=== PATIENT | female | born 1955 | race Caucasian/White ===

== ENCOUNTER 2016-06-19 20:50 | Emergency (ER) | payer MEDICAID ==
[2016-06-19 22:59] VITALS: BP 158/74
== END 2016-06-19 22:59 | disposition home or self-care (01) ==
LOC: ED 20:50
DX: S09.92XA Unspecified injury of nose, initial encounter (principal); I10 Essential (primary) hypertension; E11.9 Type 2 diabetes mellitus without complications; W22.8XXA Striking against or struck by other objects, initial encounter; Y93.89 Activity, other specified; Y99.8 Other external cause status; Y92.89 Other specified places as the place of occurrence of the external cause

== ENCOUNTER 2016-10-30 09:59 | Inpatient (IN) | payer MEDICAID ==
[~2016-10-30] VITALS: Ht 160 cm; Wt 98.5 kg
[2016-10-30 11:55] LABS: BASOPHIL % 0.4 % (0-2); PLATELET COUNT 177 x10^3mcL (130-400)
[2016-10-30 11:58] LABS: RED CELL DISTRIBUTION WIDTH 14.9 % (11.5-14.5)
[2016-10-30 12:43] LABS: CALCIUM 9.1 mg/dL (8.5-10.1); CARBON DIOXIDE 25.2 mmol/L (21-32); CHLORIDE SERUM 105 mmol/L (98-107); CREATININE SERUM 0.7 mg/dL (0.6-1.0); GFR1 > 60 mL/min; GLUCOSE SERUM 105 mg/dL (74-106); POTASSIUM SERUM 3.9 mmol/L (3.5-5.1); SODIUM SERUM 141 mmol/L (136-145)
[2016-10-30] MEDS ORDERED: GABAPENTIN100 M2 PO (14:45)
[2016-10-30] MEDS ORDERED: CITALOPRAM HYDR40 M1 PO (14:45)
[2016-10-30] MEDS ORDERED: ATORVASTATIN CA40 M1 PO (14:46)
[2016-10-30] MEDS ORDERED: GLUCOPHAGE XR500 MG PO (14:46)
[2016-10-30] MEDS ORDERED: GLIMEPIRIDE2 M1 PO (14:46)
[2016-10-30] MEDS ORDERED: LOTENSIN40 MG PO (14:46)
[2016-10-30] MEDS ORDERED: CLONAZEPAM1 MG PO (14:47)
[2016-10-30] MEDS ORDERED: ZANTAC 150150 MG PO (14:47)
[2016-10-30 15:25] LABS: PHOSPHOROUS 3.8 mg/dL (2.5-4.9)
[2016-10-30 15:30] LABS: T3 TOTAL 1.22 ng/mL
[2016-10-30 15:31] LABS: CHOLESTEROL/HDL RATIO 2.4
[2016-10-30 15:36] LABS: FREE T4 0.99 ng/dL (0.76-1.46); FREE THYROXINE INDEX 2.6 ug/dL (1.4-4.5); T4(THYROXINE) 7.9 ug/dL (4.7-13.3)
[2016-10-30 15:48] VITALS: BP 141/76
[2016-10-30 15:55] VITALS: Ht 160 cm; Wt 98.5 kg
[2016-10-30 21:35] VITALS: BP 115/68
[2016-10-31 06:15] VITALS: BP 122/71
[2016-10-31 09:21] VITALS: BP 120/66
[2016-10-31 13:48] VITALS: BP 110/59
[2016-10-31 17:34] VITALS: BP 125/70
[2016-10-31 21:18] VITALS: BP 131/77
[2016-11-01 05:41] VITALS: BP 135/78
[2016-11-01 08:32] VITALS: BP 126/68
[2016-11-01] MEDS ORDERED: BAY PO (10:44)
== END 2016-11-01 14:30 | disposition home or self-care (01) | DRG 243 ==
LOC: ED 09:59 → DU 12:08
PROVIDERS: Emergency Medicine; ADMIT Family Medicine
PROC: 0HQLXZZ Repair Left Lower Leg Skin, External Approach (ICD-10-PCS; principal; 2016-10-30)
DX: K21.9 Gastro-esophageal reflux disease without esophagitis (principal); E11.65 Type 2 diabetes mellitus with hyperglycemia; I10 Essential (primary) hypertension; S81.012A Laceration without foreign body, left knee, initial encounter; E78.5 Hyperlipidemia, unspecified; F41.9 Anxiety disorder, unspecified; F32.9 Major depressive disorder, single episode, unspecified; E66.9 Obesity, unspecified; Z68.38 Body mass index [BMI] 38.0-38.9, adult; W01.0XXA Fall on same level from slipping, tripping and stumbling without subsequent striking against object, initial encounter; Y92.9 Unspecified place or not applicable
CPT/HCPCS: 82962; 83880; 84439; J2001; J2270; J7030; Q0092

== ENCOUNTER 2016-11-15 00:32 | Emergency (ER) | payer MEDICAID ==
[~2016-11-15] VITALS: Ht 167.6 cm; Wt 98.4 kg
[~2016-11-15 00:32] MED LIST: ATORVASTATIN CA40 M1 PO; BAY PO; CITALOPRAM HYDR40 M1 PO; CLONAZEPAM1 MG PO; GABAPENTIN100 M2 PO; GLIMEPIRIDE2 M1 PO; GLUCOPHAGE XR500 MG PO; LOTENSIN40 MG PO; ZANTAC 150150 MG PO
[2016-11-15 02:07] VITALS: BP 136/78
== END 2016-11-15 02:07 | disposition home or self-care (01) ==
LOC: ED 00:32
DX: L50.0 Allergic urticaria (principal); E11.9 Type 2 diabetes mellitus without complications; I10 Essential (primary) hypertension; E78.00 Pure hypercholesterolemia, unspecified; F32.9 Major depressive disorder, single episode, unspecified
CPT/HCPCS: J0171; J1200; J2930

== ENCOUNTER 2017-02-17 16:31 | Emergency (ER) | payer MEDICAID ==
[~2017-02-17] VITALS: Ht 162.6 cm; Wt 99.3 kg
[2017-02-17 16:48] VITALS: Ht 162.6 cm; Wt 99.3 kg
[2017-02-17 21:50] VITALS: BP 138/79
== END 2017-02-17 21:50 | disposition home or self-care (01) ==
LOC: ED 16:31
DX: M54.9 Dorsalgia, unspecified (principal); J98.01 Acute bronchospasm; E78.00 Pure hypercholesterolemia, unspecified; I10 Essential (primary) hypertension; F32.9 Major depressive disorder, single episode, unspecified; Z88.8 Allergy status to other drugs, medicaments and biological substances; Z86.59 Personal history of other mental and behavioral disorders; Z90.49 Acquired absence of other specified parts of digestive tract
CPT/HCPCS: J1100; J1885

== ENCOUNTER 2017-02-21 14:52 | Emergency (ER) | payer MEDICAID ==
[2017-02-22] VITALS: BP 126/63
== END 2017-02-22 | disposition home or self-care (01) ==
LOC: ED 14:52
DX: J09.X2 Influenza due to identified novel influenza A virus with other respiratory manifestations (principal); I10 Essential (primary) hypertension; E78.00 Pure hypercholesterolemia, unspecified
CPT/HCPCS: 87804; J1200; J1885; Q0162

== ENCOUNTER 2017-04-23 08:46 | Emergency (ER) | payer MEDICAID ==
[~2017-04-23] VITALS: Ht 165.1 cm; Wt 98.9 kg
[2017-04-23 09:05] VITALS: Ht 165.1 cm; Wt 98.9 kg
[2017-04-23 10:15] LABS: CALCIUM 8.6 mg/dL (8.5-10.1); CARBON DIOXIDE 23.2 mmol/L (21-32); CHLORIDE SERUM 108 mmol/L (98-107); CREATININE SERUM 0.7 mg/dL (0.6-1.0); GFR1 > 60 mL/min; GLUCOSE SERUM 116 mg/dL (74-106); POTASSIUM SERUM 4.2 mmol/L (3.5-5.1); SODIUM SERUM 143 mmol/L (136-145)
[2017-04-23 10:17] LABS: BASOPHIL % 0.4 % (0-2); PLATELET COUNT 156 x10^3mcL (130-400)
[2017-04-23 10:20] LABS: ALBUMIN 3.7 g/dL (3.4-5.0); ALKALINE PHOSPHATASE 105 U/L (46-116); ALT/SGPT 28 U/L (14-59); AST/SGOT 27 U/L (15-37); TOTAL PROTEIN, SERUM 7.4 g/dL (6.4-8.2)
[2017-04-23 10:23] LABS: RED CELL DISTRIBUTION WIDTH 15.7 % (11.5-14.5)
[2017-04-23 10:58] LABS: microscopic required? YES; urine erythrocyte NEGATIVE (NEGATIVE)
[2017-04-23 11:15] VITALS: BP 113/64
== END 2017-04-23 11:15 | disposition home or self-care (01) ==
LOC: ED 08:46
PROVIDERS: Emergency Medicine
DX: N39.0 Urinary tract infection, site not specified (principal); R21 Rash and other nonspecific skin eruption; I10 Essential (primary) hypertension; E11.9 Type 2 diabetes mellitus without complications; E78.00 Pure hypercholesterolemia, unspecified; Z88.8 Allergy status to other drugs, medicaments and biological substances
CPT/HCPCS: 83880; J0696; J1200; Q0092

== ENCOUNTER 2017-04-23 23:51 | Emergency (ER) | payer MEDICAID ==
[2017-04-24 04:01] VITALS: BP 131/74
== END 2017-04-24 04:01 | disposition home or self-care (01) ==
LOC: ED 23:51
DX: T78.40XA Allergy, unspecified, initial encounter (principal); I10 Essential (primary) hypertension; E11.9 Type 2 diabetes mellitus without complications; E78.00 Pure hypercholesterolemia, unspecified; Z88.8 Allergy status to other drugs, medicaments and biological substances; X58.XXXA Exposure to other specified factors, initial encounter
CPT/HCPCS: 82962; J2930; Q0163

== ENCOUNTER 2017-04-24 22:39 | Emergency (ER) | payer MEDICAID ==
[~2017-04-24] VITALS: Ht 165.1 cm; Wt 99.3 kg
[2017-04-24 22:45] VITALS: Ht 165.1 cm; Wt 99.3 kg
[2017-04-25 00:23] VITALS: BP 154/77
== END 2017-04-25 00:23 | disposition home or self-care (01) ==
LOC: ED 22:39
DX: L50.9 Urticaria, unspecified (principal); I10 Essential (primary) hypertension; E11.9 Type 2 diabetes mellitus without complications; Z88.8 Allergy status to other drugs, medicaments and biological substances
CPT/HCPCS: J1100

== ENCOUNTER 2017-05-18 12:37 | Emergency (ER) | payer MEDICAID ==
[~2017-05-18] VITALS: Ht 162.6 cm; Wt 95.2 kg
[2017-05-18 12:40] VITALS: BP 108/61; Ht 162.6 cm; Wt 95.2 kg
== END 2017-05-18 14:12 | disposition home or self-care (01) ==
LOC: ED 12:37
DX: S60.011A Contusion of right thumb without damage to nail, initial encounter (principal); S80.02XA Contusion of left knee, initial encounter; I10 Essential (primary) hypertension; E11.9 Type 2 diabetes mellitus without complications; W18.30XA Fall on same level, unspecified, initial encounter; Y93.89 Activity, other specified; Y99.8 Other external cause status; Y92.89 Other specified places as the place of occurrence of the external cause

== ENCOUNTER 2017-08-20 05:50 | Inpatient (IN) | payer MEDICAID ==
[~2017-08-20] VITALS: Ht 160 cm; Wt 100.8 kg
[2017-08-20 05:51] VITALS: Ht 160 cm; Wt 100.8 kg
[2017-08-20 06:45] LABS: BASOPHIL % 0.6 % (0-2); PLATELET COUNT 167 x10^3mcL (130-400)
[2017-08-20 06:46] LABS: RED CELL DISTRIBUTION WIDTH 15.5 % (11.5-14.5)
[2017-08-20 07:38] LABS: ALBUMIN 3.8 g/dL (3.4-5.0); ALKALINE PHOSPHATASE 113 U/L (46-116); ALT/SGPT 22 U/L (14-59); AMYLASE 55 U/L (25-115); AST/SGOT 21 U/L (15-37); BILIRUBIN TOTAL 0.26 mg/dL (0.20-1.00); CALCIUM 9.6 mg/dL (8.5-10.1); CARBON DIOXIDE 26.4 mmol/L (21-32); CHLORIDE SERUM 106 mmol/L (98-107); CHOLESTEROL 141 mg/dL (<200); CREATININE SERUM 0.8 mg/dL (0.6-1.0); GFR1 > 60 mL/min; GLUCOSE SERUM 115 mg/dL (74-106); HDL CHOLESTEROL 47 mg/dL (40-60); LIPASE 410 IU/L (73-393); SODIUM SERUM 142 mmol/L (136-145); T4(THYROXINE) 5.5 ug/dL (4.7-13.3); TOTAL PROTEIN, SERUM 7.2 g/dL (6.4-8.2)
[2017-08-20 08:01] LABS: microscopic required? YES; urine erythrocyte NEGATIVE (NEGATIVE)
[2017-08-20 08:09] LABS: AMPHETAMINE QUAL UR NONE DETECTED (See below)
[2017-08-20 08:56] VITALS: BP 123/76
[2017-08-20 09:44] LABS: MAGNESIUM 1.8 mg/dL (1.8-2.4); PHOSPHOROUS 4.4 mg/dL (2.5-4.9)
[2017-08-20 09:55] LABS: FREE T4 0.77 ng/dL (0.76-1.46); FREE THYROXINE INDEX 1.7 ug/dL (1.4-4.5); T4(THYROXINE) 5.7 ug/dL (4.7-13.3)
[2017-08-20 10:37] LABS: T3 TOTAL 1.21 ng/mL
[2017-08-20 10:45] VITALS: BP 130/77
[2017-08-20 11:50] VITALS: BP 121/70
[2017-08-20 17:43] VITALS: BP 160/70
[2017-08-20 18:18] VITALS: BP 120/55
[2017-08-20 20:18] VITALS: BP 122/61
[2017-08-21 05:41] LABS: PLATELET COUNT 167 x10^3mcL (130-400)
[2017-08-21 05:43] VITALS: BP 109/40
[2017-08-21 06:01] LABS: CALCIUM 8.1 mg/dL (8.5-10.1); CARBON DIOXIDE 21.9 mmol/L (21-32); CHLORIDE SERUM 107 mmol/L (98-107); CREATININE SERUM 0.6 mg/dL (0.6-1.0); GFR1 > 60 mL/min; GLUCOSE SERUM 171 mg/dL (74-106); POTASSIUM SERUM 4.1 mmol/L (3.5-5.1); SODIUM SERUM 140 mmol/L (136-145)
[2017-08-21 06:55] LABS: BASOPHIL % 0 % (0-2); RED CELL DISTRIBUTION WIDTH 15.6 % (11.5-14.5)
[2017-08-21 08:57] VITALS: BP 138/71
[2017-08-21 11:55] VITALS: BP 110/56
[2017-08-21 17:20] VITALS: BP 135/64
[2017-08-21 20:59] VITALS: BP 136/61
[2017-08-22 05:31] VITALS: BP 120/66
[2017-08-22 06:09] LABS: BASOPHIL % 0.3 % (0-2); PLATELET COUNT 156 x10^3mcL (130-400)
[2017-08-22 06:20] LABS: CALCIUM 7.9 mg/dL (8.5-10.1); CARBON DIOXIDE 24.2 mmol/L (21-32); CHLORIDE SERUM 110 mmol/L (98-107); CREATININE SERUM 0.7 mg/dL (0.6-1.0); GFR1 > 60 mL/min; GLUCOSE SERUM 137 mg/dL (74-106); PHOSPHOROUS 3.3 mg/dL (2.5-4.9); POTASSIUM SERUM 4.6 mmol/L (3.5-5.1); SODIUM SERUM 143 mmol/L (136-145)
[2017-08-22 06:49] LABS: RED CELL DISTRIBUTION WIDTH 15.9 % (11.5-14.5)
[2017-08-22 09:21] VITALS: BP 135/68
[2017-08-22 13:27] VITALS: BP 129/47
[2017-08-22 16:20] VITALS: BP 114/66
[2017-08-22 21:00] VITALS: BP 136/65
[2017-08-23 05:41] VITALS: BP 115/64
[2017-08-23 08:38] VITALS: BP 114/73
[2017-08-23 10:36] LABS: BASOPHIL % 0.2 % (0-2); PLATELET COUNT 142 x10^3mcL (130-400)
[2017-08-23 10:38] LABS: CALCIUM 8.2 mg/dL (8.5-10.1); CARBON DIOXIDE 23.8 mmol/L (21-32); CHLORIDE SERUM 108 mmol/L (98-107); CREATININE SERUM 0.9 mg/dL (0.6-1.0); GFR1 > 60 mL/min; GLUCOSE SERUM 113 mg/dL (74-106); POTASSIUM SERUM 3.4 mmol/L (3.5-5.1); SODIUM SERUM 142 mmol/L (136-145)
[2017-08-23 10:48] LABS: RED CELL DISTRIBUTION WIDTH 16.1 % (11.5-14.5)
[2017-08-23 13:06] VITALS: BP 110/69
[2017-08-23] MEDS ORDERED: LAC PO (14:27)
[2017-08-23] MEDS ORDERED: LEVAQUIN500 M1 PO (14:27)
[2017-08-23] MEDS ORDERED: MEDDP PO (15:28)
[2017-08-23] MEDS ORDERED: QVAR REDIHALE10.6 G1 IH (15:28)
[2017-08-23 15:34] VITALS: BP 110/69
[2017-08-23 17:31] VITALS: BP 106/61
== END 2017-08-23 18:30 | disposition home or self-care (01) | DRG 141 ==
LOC: ED 05:50 → DU 08:09
PROVIDERS: Emergency Medicine; Family Medicine; Internal Medicine
DX: J45.901 Unspecified asthma with (acute) exacerbation (principal); N17.0 Acute kidney failure with tubular necrosis; K85.90 Acute pancreatitis without necrosis or infection, unspecified; E66.2 Morbid (severe) obesity with alveolar hypoventilation; K21.9 Gastro-esophageal reflux disease without esophagitis; N39.0 Urinary tract infection, site not specified; E11.65 Type 2 diabetes mellitus with hyperglycemia; E11.51 Type 2 diabetes mellitus with diabetic peripheral angiopathy without gangrene; F32.9 Major depressive disorder, single episode, unspecified; I10 Essential (primary) hypertension; E78.5 Hyperlipidemia, unspecified; D64.9 Anemia, unspecified; M94.0 Chondrocostal junction syndrome [Tietze]; Z79.82 Long term (current) use of aspirin; Z68.39 Body mass index [BMI] 39.0-39.9, adult; Z79.84 Long term (current) use of oral hypoglycemic drugs
CPT/HCPCS: 82962; 83880; 84439; 94150; J1644; J1956; J2920; J2930; J7030; J7613; J7620; J7644; Q0092

== ENCOUNTER 2018-03-01 15:45 | Emergency (ER) | payer MEDICAID ==
[~2018-03-01] VITALS: Ht 165.1 cm; Wt 101.6 kg
[~2018-03-01 15:45] MED LIST changes: +LAC PO; +LEVAQUIN500 M1 PO; +MEDDP PO; +QVAR REDIHALE10.6 G1 IH
[2018-03-01 15:58] VITALS: Ht 165.1 cm; Wt 101.6 kg
[2018-03-01 17:03] LABS: UA SPECIFIC GRAVITY 1.025 (1.005-1.035); microscopic required? YES; urine erythrocyte NEGATIVE (NEGATIVE)
[2018-03-01 17:05] LABS: BASOPHIL % 0.4 % (0-2); PLATELET COUNT 192 x10^3mcL (130-400)
[2018-03-01 17:08] LABS: RED CELL DISTRIBUTION WIDTH 15.5 % (11.5-14.5)
[2018-03-01 17:26] LABS: CALCIUM 8.7 mg/dL (8.5-10.1); CARBON DIOXIDE 19.1 mmol/L (21-32); CHLORIDE SERUM 105 mmol/L (98-107); CREATININE SERUM 0.8 mg/dL (0.6-1.0); GFR1 > 60 mL/min; GLUCOSE SERUM 103 mg/dL (74-106); POTASSIUM SERUM 3.8 mmol/L (3.5-5.1); SODIUM SERUM 138 mmol/L (136-145)
[2018-03-01 17:29] LABS: T3 TOTAL 0.89 ng/mL
[2018-03-01 17:33] LABS: CK-MB 1.1 ng/mL (0-3.6)
[2018-03-01 17:45] LABS: ALBUMIN 3.9 g/dL (3.4-5.0); ALKALINE PHOSPHATASE 125 U/L (46-116); ALT/SGPT 32 U/L (14-59); AST/SGOT 27 U/L (15-37); TOTAL PROTEIN, SERUM 7.8 g/dL (6.4-8.2)
[2018-03-01 17:55] LABS: FREE T4 0.76 ng/dL (0.76-1.46); FREE THYROXINE INDEX 2.3 ug/dL (1.4-4.5); T4(THYROXINE) 7.3 ug/dL (4.7-13.3)
[2018-03-01 18:01] LABS: ERYTHROCYTE SED RATE 28 mm/hr (0-30)
[2018-03-01 18:02] LABS: C REACTIVE PROTEIN 0.5 mg/dL (<=0.9)
[2018-03-01 23:20] VITALS: BP 131/78
== END 2018-03-01 23:25 | disposition home or self-care (01) ==
LOC: ED 15:45
PROVIDERS: Specialist
DX: B34.9 Viral infection, unspecified (principal); J45.909 Unspecified asthma, uncomplicated; I10 Essential (primary) hypertension; E11.9 Type 2 diabetes mellitus without complications; E78.00 Pure hypercholesterolemia, unspecified; F32.9 Major depressive disorder, single episode, unspecified; Z88.8 Allergy status to other drugs, medicaments and biological substances
CPT/HCPCS: 84439; 87804; J0696; J1885; J2405; J2930; J3010; J7620; Q0092

== ENCOUNTER 2018-12-08 14:57 | Emergency (ER) | payer MEDICAID ==
[~2018-12-08] VITALS: Ht 165.1 cm; Wt 104.3 kg
[2018-12-08 15:04] VITALS: Ht 165.1 cm; Wt 104.3 kg
[2018-12-08 16:51] VITALS: BP 114/74
== END 2018-12-08 16:51 | disposition home or self-care (01) ==
LOC: ED 14:57
DX: S63.617A Unspecified sprain of left little finger, initial encounter (principal); I10 Essential (primary) hypertension; R42 Dizziness and giddiness; E11.9 Type 2 diabetes mellitus without complications; E78.00 Pure hypercholesterolemia, unspecified; F32.9 Major depressive disorder, single episode, unspecified; Z90.49 Acquired absence of other specified parts of digestive tract; Z88.8 Allergy status to other drugs, medicaments and biological substances; W22.01XA Walked into wall, initial encounter; Y93.89 Activity, other specified; Y92.89 Other specified places as the place of occurrence of the external cause; Y99.8 Other external cause status; J45.909 Unspecified asthma, uncomplicated
CPT/HCPCS: A4570

== ENCOUNTER 2019-03-01 10:15 | Inpatient (IN) | payer MEDICAID ==
[~2019-03-01] VITALS: Ht 160 cm; Wt 100.2 kg
[2019-03-01 10:27] VITALS: Ht 160 cm; Wt 100.2 kg
--- NOTE | 2019-03-01 10:30 | NUR ---
EKG IN PROGRESS.
--- NOTE | 2019-03-01 11:16 | NUR ---
PT HERE FOR HBP FOR 3 DAYS WITH ASSOCIATED HEADACHE AND DIZZINESS. PT CLAIMS PRESSURE LIKE HEADACHE WITHOUT PRESENCE OF N/V/D OR FEVER. PT DOES CLAIM TO HAVE INTERMITTENT NAUSEA BUT DENIES NAUSEA UPON ARRIVAL. ELISA AND DR HOGAN SAW PT FOR EVAL
--- NOTE | 2019-03-01 11:23 | NUR ---
LAB AT BEDSIDE. BP CURRENTLY 131/63
[2019-03-01 11:55] LABS: BASOPHIL % 0.3 % (0-2); PLATELET COUNT 183 x10^3mcL (130-400)
[2019-03-01 11:56] LABS: RED CELL DISTRIBUTION WIDTH 16.7 % (11.5-14.5)
[2019-03-01 12:29] LABS: ALBUMIN 3.6 g/dL (3.4-5.0); ALKALINE PHOSPHATASE 129 U/L (46-116); ALT/SGPT 32 U/L (14-59); AST/SGOT 24 U/L (15-37); BILIRUBIN TOTAL 0.2 mg/dL (0.20-1.00); CALCIUM 8.7 mg/dL (8.5-10.1); CARBON DIOXIDE 26.9 mmol/L (21-32); CHLORIDE SERUM 103 mmol/L (98-107); CREATININE SERUM 0.6 mg/dL (0.6-1.0); GFR1 > 60 mL/min; GLUCOSE SERUM 116 mg/dL (74-106); POTASSIUM SERUM 4.1 mmol/L (3.5-5.1); SODIUM SERUM 137 mmol/L (136-145); TOTAL PROTEIN, SERUM 7.2 g/dL (6.4-8.2)
--- NOTE | 2019-03-01 12:35 | NUR ---
PT HAS VSS AT THIS TIME WITHOUT PRESENCE OF ABNORMALLY HBP. PT HAS NO S/S DISTRESS NOTED AND AWAITING MD REEVAL
--- NOTE | 2019-03-01 13:55 | NUR ---
PT RESTING IN BED WITH NO SIGNS OF DISTRESS. AT BEDSIDE.
--- NOTE | 2019-03-01 15:06 | NUR ---
PT RESTING IN BED WITH AT BEDSIDE. NO SIGNS OF DISTRESS.
--- NOTE | 2019-03-01 15:33 | NUR ---
REPORT GIVEN TO JHONNY GRIFFIN.
[2019-03-01 15:47] LABS: CHOLESTEROL/HDL RATIO 3.3; PHOSPHOROUS 3.4 mg/dL (2.5-4.9)
[2019-03-01 15:57] VITALS: BP 149/76
[2019-03-01 15:58] LABS: T3 TOTAL 0.97 ng/mL
[2019-03-01 16:00] VITALS: BP 150/75
--- NOTE | 2019-03-01 16:14 | NUR ---
RECEIVED PT FROM ER, PT ADMIT FOR CHEST PAIN, PT IS A/O X4, VERBAL RESPONSIVE. LUNG SOUND CLEAR BILATERAL, NO COUGH, NO SOB. PT IS ON TELE 9. C/O PRESSURE PAIN 4/10, ONLY AT CENTER OF CHEST, NO RADIATE. BOWEL SOUND PRESENT ALL 4 QUADRANTS, NO DISTENTION, NO TENDER. PEDAL PULSE PRESENT BOTH FEET, NO EDEMA, IV AT LEFT AC, NO LEAKING, NO INFILTRATION. ALL ADLS ASSIST, ALL NEED MET, CALL LIGHT IN REACH, WILL CONTINUE TO MONITOR.
[2019-03-01 16:20] LABS: FREE T4 0.79 ng/dL (0.76-1.46); T4(THYROXINE) 6.3 ug/dL (4.7-13.3)
--- NOTE | 2019-03-01 19:23 | NUR ---
REPORT GIVEN TO HAND I BLOCKER NURSE, CARE ENDORSED
--- NOTE | 2019-03-01 19:40 | NUR ---
PT A/A/O X4. DENIES DIZZINESS C/O HEADACHE AND PAIN. GAVE PT NORCO PO. PT TOLERATED IT WELL. BREATH SOUNDS CLEAR. BREATHING EVEN AND UNLABORED ON ROOM AIR. DENIES CHEST PRESSURE. BOWEL SOUNDS ACTIVE. NO C/O N/V AND ABD PAIN. IV INTACT ON THE LAC. MADE PT COMFORTABLE. PLACED CALL LIGHT WITH IN REACH. WILL CONTINUE TO MONITOR.
[2019-03-01 20:50] VITALS: BP 123/50
--- NOTE | 2019-03-01 21:55 | NUR ---
PT C/O FEELING ANXIOUS. GAVE PT KLONOPIN PO. PT TOLERATED IT WELL. WILL CONTINUE TO MONITOR.
--- NOTE | 2019-03-02 01:45 | NUR ---
PT C/O HAVING PROBLEM SLEEPING. DR. VASQUEZ NOTIFIED AND ORDERED AMBIEN PO. PT WAS GIVEN AMBIEN PT BY RN. PT TOLERATED IT WELL. WILL CONTINUE TO MONITOR.
[2019-03-02 05:25] VITALS: BP 113/55
--- NOTE | 2019-03-02 06:04 | NUR ---
PT QUIET AND RESTING. NO C/O CHEST PAIN AND HEADACHE THUS FAR. MADE PT COMFORTABLE. WILL ENDORSE TO THE AM NURSE ACCORDINGLY.
[2019-03-02 06:15] LABS: microscopic required? NO
[2019-03-02 06:45] LABS: BASOPHIL % 0.2 % (0-2); PLATELET COUNT 172 x10^3mcL (130-400)
[2019-03-02 06:53] LABS: RED CELL DISTRIBUTION WIDTH 16.4 % (11.5-14.5)
[2019-03-02 07:02] LABS: urine erythrocyte NEGATIVE (NEGATIVE)
[2019-03-02 07:32] LABS: AMPHETAMINE QUAL UR NONE DETECTED (See below)
[2019-03-02 08:00] LABS: CALCIUM 8.5 mg/dL (8.5-10.1); CARBON DIOXIDE 26.7 mmol/L (21-32); CHLORIDE SERUM 103 mmol/L (98-107); CREATININE SERUM 0.7 mg/dL (0.6-1.0); GFR1 > 60 mL/min; GLUCOSE SERUM 110 mg/dL (74-106); MAGNESIUM 2.1 mg/dL (1.8-2.4); PHOSPHOROUS 4.7 mg/dL (2.5-4.9); POTASSIUM SERUM 4.2 mmol/L (3.5-5.1); SODIUM SERUM 138 mmol/L (136-145)
[2019-03-02 08:32] VITALS: BP 135/72
--- NOTE | 2019-03-02 08:37 | NUR ---
AAO TIMES 4. TELE # 9 SR. LUNGS CTA. NO SOB. O2 SAT ON RA 99%. BS'S ACTIVE TIMES 4. TAYLOR STRONG. IV SITE LFA CDI. COOPERATIVE AND PLEASANT. NO C/O PAIN. NO SOB.
--- NOTE | 2019-03-02 09:01 | NUR ---
C/O HEADACHE UNRELIEVED BY OTHER MEDIATIONS. TORADOL AND IMITREX WERE BOTH GIVEN ORDERED. AT 1100 PATIENT DENIED ANY HEADACHE, PAIN LEVEL A 0/10.
--- NOTE | 2019-03-02 09:03 | NUR ---
ECHOCARDIOGRAM IS PENDNG PS HAVING A SEVERE MIGRAINE.
--- NOTE | 2019-03-02 12:13 | NUR ---
ECHOCARDIOGRAM IS COMPLETED.
[2019-03-02 12:17] VITALS: BP 139/68
--- NOTE | 2019-03-02 13:26 | NUR ---
Discount pharmacy card and list to low cost medical clinics given to patient by Martha Houser.
[2019-03-02 17:05] VITALS: BP 121/67
[2019-03-02] MEDS ORDERED: IMITREX50 MG PO (17:57)
[2019-03-02] MEDS ORDERED: IBU400 M1 PO (17:58)
--- NOTE | 2019-03-02 18:40 | NUR ---
GAVE DISCHARGE INSTRUCTIONS AND PRESCRIPTION WAS SENT TO [facility] ON [address]. I REMOVED THE SALINE LOCK, ANGIO INTACT. SHE VERBALIZED "I UNDERSTAND" TO ALL INSTRUCTIONS. SHE IS AWARE THAT DR DIAZ ASKED HER TO GET A REFERRAL FROM HER [employer]PERATIONS TEAM LEADER FOR A ASSISTANT PROFESSOR OF DIETETICS TO DO A STRESS TEST.
== END 2019-03-02 18:36 | disposition home or self-care (01) | DRG 203 ==
LOC: ED 10:15 → DU 15:02
PROVIDERS: Emergency Medicine; ADMIT Family Medicine
DX: R07.89 Other chest pain (principal); E11.9 Type 2 diabetes mellitus without complications; E78.5 Hyperlipidemia, unspecified; I10 Essential (primary) hypertension; F32.9 Major depressive disorder, single episode, unspecified; G43.901 Migraine, unspecified, not intractable, with status migrainosus
CPT/HCPCS: 82962; 83880; 84439; 87804; G0378; J1885; J2270; J7620; Q0092

== ENCOUNTER 2019-07-31 12:57 | Emergency (ER) | payer MEDICAID ==
[~2019-07-31] VITALS: Ht 162.6 cm; Wt 104.8 kg
[~2019-07-31 12:57] MED LIST changes: +IBU400 M1 PO; +IMITREX50 MG PO
[2019-07-31 13:17] VITALS: Ht 162.6 cm; Wt 104.8 kg
[2019-07-31 14:26] LABS: CALCIUM 8.3 mg/dL (8.5-10.1); CARBON DIOXIDE 24.2 mmol/L (21-32); CHLORIDE SERUM 105 mmol/L (98-107); CREATININE SERUM 0.8 mg/dL (0.6-1.0); GFR1 > 60 mL/min; GLUCOSE SERUM 99 mg/dL (74-106); POTASSIUM SERUM 3.9 mmol/L (3.5-5.1); SODIUM SERUM 141 mmol/L (136-145)
[2019-07-31 14:30] LABS: ALBUMIN 3.5 g/dL (3.4-5.0); ALKALINE PHOSPHATASE 123 U/L (46-116); ALT/SGPT 28 U/L (14-59); AST/SGOT 21 U/L (15-37); BILIRUBIN TOTAL 0.3 mg/dL (0.20-1.00); TOTAL PROTEIN, SERUM 6.9 g/dL (6.4-8.2)
[2019-07-31 15:49] LABS: BASOPHIL % 0.3 % (0-2); PLATELET COUNT 179 x10^3mcL (130-400)
[2019-07-31 15:50] LABS: RED CELL DISTRIBUTION WIDTH 16.8 % (11.5-14.5)
[2019-07-31 17:17] VITALS: BP 135/88
== END 2019-07-31 17:17 | disposition home or self-care (01) ==
LOC: ED 12:57
PROVIDERS: Emergency Medicine
DX: D64.9 Anemia, unspecified (principal); E86.0 Dehydration; R11.2 Nausea with vomiting, unspecified; R07.89 Other chest pain; J45.909 Unspecified asthma, uncomplicated; I10 Essential (primary) hypertension; E11.9 Type 2 diabetes mellitus without complications; E78.00 Pure hypercholesterolemia, unspecified; Z90.49 Acquired absence of other specified parts of digestive tract; Z88.8 Allergy status to other drugs, medicaments and biological substances
CPT/HCPCS: 36415; 82962; Q0092; Q0162

== ENCOUNTER 2019-10-29 11:53 | Emergency (ER) | payer MEDICAID ==
[~2019-10-29] VITALS: Ht 157.5 cm; Wt 107.5 kg
[2019-10-29 12:04] VITALS: Ht 157.5 cm; Wt 107.5 kg
[2019-10-29 13:08] LABS: CALCIUM 8.5 mg/dL (8.5-10.1); CARBON DIOXIDE 24.5 mmol/L (21-32); CHLORIDE SERUM 104 mmol/L (98-107); CREATININE SERUM 0.9 mg/dL (0.6-1.0); GFR1 > 60 mL/min; GLUCOSE SERUM 166 mg/dL (74-106); POTASSIUM SERUM 3.7 mmol/L (3.5-5.1); SODIUM SERUM 140 mmol/L (136-145)
[2019-10-29 13:13] LABS: ALBUMIN 3.5 g/dL (3.4-5.0); ALKALINE PHOSPHATASE 127 U/L (46-116); ALT/SGPT 25 U/L (14-59); AST/SGOT 21 U/L (15-37); BILIRUBIN TOTAL 0.21 mg/dL (0.20-1.00); TOTAL PROTEIN, SERUM 7.3 g/dL (6.4-8.2)
[2019-10-29 13:39] LABS: BASOPHIL % 0.5 % (0-2); PLATELET COUNT 179 x10^3mcL (130-400)
[2019-10-29 14:23] VITALS: BP 109/61
[2019-10-29 14:36] LABS: rbc morphology (normal/abnorm) ABNORMAL (NORMAL)
== END 2019-10-29 14:23 | disposition home or self-care (01) ==
LOC: ED 11:53
PROVIDERS: Emergency Medicine
DX: R53.1 Weakness (principal); R42 Dizziness and giddiness; E11.9 Type 2 diabetes mellitus without complications; I10 Essential (primary) hypertension; J45.909 Unspecified asthma, uncomplicated; E78.00 Pure hypercholesterolemia, unspecified; Z90.49 Acquired absence of other specified parts of digestive tract
CPT/HCPCS: Q0162

== ENCOUNTER 2020-01-01 21:18 | Emergency (ER) | payer MEDICAID ==
[~2020-01-01] VITALS: Ht 157.5 cm; Wt 77.1 kg
[2020-01-01 21:22] VITALS: Ht 157.5 cm; Wt 77.1 kg
[2020-01-01 23:19] LABS: BASOPHIL % 0.4 % (0-2); PLATELET COUNT 182 x10^3mcL (130-400); RED CELL DISTRIBUTION WIDTH 16.6 % (11.5-14.5)
[2020-01-01 23:28] LABS: CALCIUM 8.7 mg/dL (8.5-10.1); CARBON DIOXIDE 27.7 mmol/L (21-32); CHLORIDE SERUM 103 mmol/L (98-107); CREATININE SERUM 0.9 mg/dL (0.6-1.0); GFR1 > 60 mL/min; GLUCOSE SERUM 124 mg/dL (74-106); POTASSIUM SERUM 3.9 mmol/L (3.5-5.1); SODIUM SERUM 137 mmol/L (136-145)
[2020-01-01 23:32] LABS: ALBUMIN 3.6 g/dL (3.4-5.0); ALKALINE PHOSPHATASE 125 U/L (46-116); ALT/SGPT 24 U/L (14-59); AST/SGOT 21 U/L (15-37); BILIRUBIN TOTAL 0.2 mg/dL (0.20-1.00); TOTAL PROTEIN, SERUM 7.1 g/dL (6.4-8.2)
[2020-01-02 00:23] VITALS: BP 100/56
== END 2020-01-02 00:23 | disposition home or self-care (01) ==
LOC: ED 21:18
PROVIDERS: Student in an Organized Health Care Education/Training Program
DX: R06.02 Shortness of breath (principal); R05 Cough; J45.909 Unspecified asthma, uncomplicated; I10 Essential (primary) hypertension; E11.9 Type 2 diabetes mellitus without complications; E78.00 Pure hypercholesterolemia, unspecified; Z88.8 Allergy status to other drugs, medicaments and biological substances
CPT/HCPCS: 83880; J7644

== ENCOUNTER 2020-03-19 12:49 | Emergency (ER) | payer MEDICAID ==
[~2020-03-19] VITALS: Ht 162.6 cm; Wt 102.5 kg
[2020-03-19 13:07] VITALS: BP 118/63; Ht 162.6 cm; Wt 102.5 kg
[2020-03-19] MEDS ORDERED: SINGULAIR10 MG PO (14:50)
[2020-03-19] MEDS ORDERED: DELTASONE20 MG PO (14:50)
[2020-03-19] MEDS ORDERED: APAP325 MG PO (14:50)
[2020-03-19] MEDS ORDERED: ZITHROMAX Z-PA250 MG PO (14:50)
== END 2020-03-19 15:03 | disposition home or self-care (01) ==
LOC: ED 12:49
DX: J45.901 Unspecified asthma with (acute) exacerbation (principal); I10 Essential (primary) hypertension; E11.9 Type 2 diabetes mellitus without complications; E78.00 Pure hypercholesterolemia, unspecified

== ENCOUNTER 2020-04-24 18:08 | Emergency (ER) | payer MEDICAID ==
[~2020-04-24] VITALS: Ht 162.6 cm; Wt 106.1 kg
[~2020-04-24 18:08] MED LIST changes: +APAP325 MG PO; +DELTASONE20 MG PO; +SINGULAIR10 MG PO; +ZITHROMAX Z-PA250 MG PO
[2020-04-24 18:32] VITALS: Ht 162.6 cm; Wt 106.1 kg
[2020-04-24] MEDS ORDERED: TYLENOL EXTRA500 M3 PO (21:00)
[2020-04-24 21:09] VITALS: BP 152/71
== END 2020-04-24 21:09 | disposition home or self-care (01) ==
LOC: ED 18:08
DX: M79.605 Pain in left leg (principal); I10 Essential (primary) hypertension; E11.9 Type 2 diabetes mellitus without complications; E78.00 Pure hypercholesterolemia, unspecified; J45.909 Unspecified asthma, uncomplicated; Z88.8 Allergy status to other drugs, medicaments and biological substances
CPT/HCPCS: J1885